=== PATIENT | female | born 1970 | race African-American/Black ===

== ENCOUNTER 2018-12-25 08:21 | Day surgery (SDC) | payer OTHER ==
[2018-12-24 16:06] VITALS: BMI 33.6
[2018-12-25] MEDS ORDERED: BUPIVACAINE HCL/PF (5 MG/ML) 30 ML VIAL IJ ONE (10:09)
[2018-12-25] MEDS ORDERED: MIDAZOLAM HCL 2 MG/2 ML SINGLE DOSE VIAL ONE (10:09)
[2018-12-25] MEDS ORDERED: SUCCINYLCHOLINE CHLORIDE 200 MG/10 ML VIAL ONE (10:32)
[2018-12-25] MEDS ORDERED: PROPOFOL 20 ML ONE (10:32)
[2018-12-25] MEDS ORDERED: LIDOCAINE HCL 2% 100 MG/5 ML DISP.SYRIN ONE (10:34)
[2018-12-25] MEDS ORDERED: ceFAZolin SODIUM 1 GM VIAL ONE (10:42)
[2018-12-25] MEDS ORDERED: DEXAMETHASONE SOD PHOSPHATE 4 MG/1 ML VIAL ONE (10:42)
[2018-12-25] MEDS ORDERED: KETOROLAC TROMETHAMINE 30 MG/1 ML VIAL ONE (10:42)
[2018-12-25] MEDS ORDERED: ONDANSETRON 4 MG/2 ML VIAL ONE (10:42)
[2018-12-25] MEDS ORDERED: BUPIVACAINE HCL/PF 2.5 MG/ML - 30 ML VIAL IJ ONE (11:58)
[2018-12-25] MEDS ORDERED: BUPIVACAINE HCL/PF 0.25% (2.5MG/ML) 10 ML VIAL IJ ONE (12:09)
[2018-12-25] MEDS ORDERED: PROMETHAZINE HCL 25 MG/1 ML VIAL IVPUSH PRN (12:24)
[2018-12-25] MEDS ORDERED: ONDANSETRON 4 MG/2 ML VIAL IVPUSH PRN (12:24)
[2018-12-25] MEDS ORDERED: oxyCODONE HCL 5 MG TABLET ONE ×2 (13:21→14:16)
--- NOTE | 2018-12-25 13:36 | OP ---
DATE OF OPERATION: 12/25/2018 SURGEON: Mukul Logan MD [employer] PILOT: DOREEN Reece PREOPERATIVE DIAGNOSIS: Left bimalleolar ankle fracture. POSTOPERATIVE DIAGNOSIS: Left bimalleolar ankle fracture. PROCEDURE: Open reduction and internal fixation, bimalleolar ankle fracture. FINDINGS: 1. Short oblique fracture, distal fibula. 2. Oblique fracture, medial malleolus. PROCEDURE: Informed consent was obtained. The patient was taken to the operating room where the left lower extremity was prepped and draped in sterile fashion. Tourniquet was placed on the upper leg, inflated to 300 mmHg. A lateral incision made centrally over the fibula centered on the fracture site approximately 8 cm in length. Fracture was identified. Soft tissue was removed and a reduction clamp was placed after irrigation. An interfragmentary screw was placed from anterior to posterior reducing the fracture. A 7-hole 1/3 tubular plate was then crossed across the area using A-O technique. Screws were placed above and below the fracture site securing the plate to the lateral fibula. The wound was irrigated with copious amounts of irrigation. Closed with 0 Vicryl, 2-0 Vicryl and monica. A small incision was made over the distal portion of the medial malleolus. The medial malleolus fracture was reduced. Two guidewires were placed from the 4.0 cannulated screw set across the medial malleolus reducing it to the tibia. This was followed by 4-mm partially threaded screws reducing the fracture. The wound was irrigated with copious amounts of irrigation again. Closed with 2-0 Vicryl and 3-0 nylon. Sterile dressing and splint were placed. Patient was transferred to recovery without complication. MUKUL LOGAN M.D. [id number]
[2018-12-25 14:08] VITALS: TEMP 97.7
[2018-12-25] MEDS ORDERED: oxyCODONE HCL 5 MG TABLET PO PRN ×2 (14:32)
[2018-12-25] MEDS ORDERED: LACTATED RINGERS SOLUTION 1,000 ML IV SCH (14:45)
[2018-12-25 15:52] VITALS: BP 136/89; PULSE 86
== END 2018-12-25 15:52 | disposition home or self-care (01) ==
LOC: FASU 08:21
PROVIDERS: ATTEND Orthopaedic Surgery
PROC: 0QSH04Z Reposition Left Tibia with Internal Fixation Device, Open Approach (ICD-10-PCS; 2018-12-25)
PROC: 0QSK04Z Reposition Left Fibula with Internal Fixation Device, Open Approach (ICD-10-PCS; principal; 2018-12-25 09:30)
DX: S82.842A Displaced bimalleolar fracture of left lower leg, initial encounter for closed fracture (principal); X58.XXXA Exposure to other specified factors, initial encounter; Y93.9 Activity, unspecified; Y92.9 Unspecified place or not applicable
CPT/HCPCS: 73610-TC-LT-FY; 73630-TC-LT; 84703; 94760

== ENCOUNTER 2024-08-04 14:01 | Emergency (ER) | payer OTHER ==
[2024-08-04 14:09] VITALS: BP 138/89; PULSE 81; RESP 18; TEMP 97.9; BMI 30.9
== END 2024-08-04 16:05 | disposition home or self-care (01) ==
LOC: JER 14:01
DX: K59.00 Constipation, unspecified (principal); R10.30 Lower abdominal pain, unspecified
CPT/HCPCS: 99283-25